=== PATIENT | female | born 1975 | race Caucasian/White ===

== ENCOUNTER 2019-07-12 07:02 | Emergency (ER) | payer BC ==
--- NOTE | 2019-07-12 07:17 | UC ---
Throat Pain/Nasal Yobani HPI - HPI Summary HPI Summary: PT presents with 24 hours of fevers, chills, myalgia and sore throat. Pt has taken cool baths and natural remidies. Took ASA x 1 last night. Pt denies rash. no cp, sob, abd pain decreased appetite episode of vomiting x 1 last night no abd pain. pt concerned - question strep. not pt works with public + sick contact pt's medications as entered in EMR by air cargo specialist supervisor reviewed - History of Current Complaint Stated Complaint: FEVER CHILLS SORE THROAT HEADACHE Hx Obtained From: Patient, Family/Industrial Ecology Technician Hx Last Menstrual Period: 02/10/16 Onset/Duration: Gradual Onset - Allergies/Home Medications Allergies/Adverse Reactions: Allergies Allergy/AdvReac Type Severity Reaction Status Date / Time doxycycline Allergy Airway Verified 07/12/19 07:21 Obstruction Home Medications: Home Medications Aspirin 1 tab PO ONCE PRN 07/12/19 [History Confirmed 07/12/19] Cbd Oil Gummy 1 dose PO DAILY 07/12/19 [History Confirmed 07/12/19] Cholecalciferol (Vitamin D3) [Vitamin D3] 1 tab PO DAILY 07/12/19 [History Confirmed 07/12/19] Multivitamin [Multivitamins] 1 tab PO DAILY 07/12/19 [History Confirmed 07/12/19 ] Sambucol Black Elderberry 1 dose PO ONCE PRN 07/12/19 [History Confirmed ] PMH/Surg Hx/FS Hx/Imm Hx Previously Healthy: Yes - Surgical History Surgical History: None - Family History Known Family History: Positive: Non-Contributory - Social History Occupation: Employed Full-time Lives: With Family Alcohol Use: Rare Substance Use Type: None Smoking Status (MU): Never Smoked Tobacco - Immunization History Most Recent Influenza Vaccination: never Most Recent Tetanus Shot: Not up to date Review of Systems All Other Systems Reviewed And Are Negative: Yes Constitutional: Positive: Fever, Chills, Fatigue ENT: Positive: Sore Throat, Sinus Congestion Respiratory: Positive: Negative Cardiovascular: Positive: Negative Gastrointestinal: Positive: Vomiting Physical Exam - Summary Physical Exam Summary: Vital Signs Reviewed: Yes A+Ox3, tired appearing Eyes: Conjunctiva Clear, GREY. EOM intact and full ENT: Hearing grossly normal TM x 2 clear, turbinates inflammed + PND mmoist, uvula midline, no exudate, + erythema Neck: Positive: Supple Respiratory: Positive: No respiratory distress, No accessory muscle use + CTA throughout no w/r Cardiovascular: RRR nl s1, s2 no m/r CBT <2 sec abd soft + BS nt/nd no guarding, no distension Musculoskeletal Exam: CARRIZALES x 4 without difficulty Strength Intact, ROM Intact Neurological: Positive: Alert, + sensation throughout Psychological: Positive: Normal Response To student activities director Skin: Positive: no rash, no ecchymosis Triage Information Reviewed: Yes Throat Pain/Nasal Course/Dx - Course Course Of Treatment: Pt with 36 hours body aches, fatigue, pharyngitis on exam vss, erythema oropharynx and congested d/w pt and spouse - will test for strep and flu if neg supportive care, hydrate, motrin/apap, secretion precaution return precaution if strep + abx pt comfortable and in agreement with plan - Differential Dx/Diagnosis Provider Diagnosis: Pharyngitis, Upper respiratory infection Discharge ED - Sign-Out/Discharge Documenting (check all that apply): Patient Departure All imaging exams completed and their final reports reviewed: No Studies - Discharge Plan Condition: Stable Disposition: HOME Patient Education Materials: Pharyngitis (ED), Viral Syndrome (ED) Referrals: Tammi Henry MD [Primary Care Provider] - Additional Instructions: - Stay well hydrated. Drink plenty of non-alcoholic, non-caffinated beverages. - Alternate ibuprofen (Advil, Motrin) 600mg and Tylenol every 3 hours for pain or fever. Take with food. Do NOT take for more than 4-5 days. - These infections are spread by secretions - do NOT share eating or drinking utensils - clean items you share with other people such as cell phones, computer mouse, TV remote, computer tablets,etc. Once you start to feel better, change your toothbrush and your pillowcase. - get plenty of restful sleep - humidify the air in the room where you sleep - boil water, run a hot steam shower, vaporizer, cups of water by heat register - okay to take over the counter decongestant and cough medication - contact your doctor or return with questions or concerns - Billing Disposition and Condition Condition: STABLE Disposition: Home
[2019-07-12 07:54] LABS: Influenza A Molecular NEGATIVE (Negative); Influenza B Molecular NEGATIVE (Negative)
== END 2019-07-12 08:19 | disposition home or self-care (01) ==
LOC: UCEAST 07:02
DX: J02.9 Acute pharyngitis, unspecified (principal); J06.9 Acute upper respiratory infection, unspecified; R11.10 Vomiting, unspecified; Z88.1 Allergy status to other antibiotic agents
CPT/HCPCS: 87651; 99201; G0463